=== PATIENT | male | born 1935 | race Caucasian/White ===

== ENCOUNTER 2022-05-13 17:28 | Inpatient (IN) | payer MEDICARE, OTHER ==
[~2022-05-13] VITALS: Ht 177.8 cm; Wt 105.7 kg
[~2022-05-13 17:28] MED LIST: ALDACTONE25 MG PO; BENICAR *OUT OF20 MG PO; CEPHALEXIN500 MG PO; COUMADIN5 MG PO; COUMADIN7.5 MG PO; HCTZ25 MG PO; HYTRIN5 MG PO; LASIX40 MG PO; MAG-OXIDE 400M400 MG PO; PRINIVIL20 MG PO; SPIRIVA 18MCG18 MCG INH; SYMBICORT 1601 PUFFS INH; VITAMIN D1000 UNI1 PO; VITAMIN D2000 UNI1 PO; ZOCOR10 MG PO; [UNRECOGNIZED DRUG - OTHER] PO
[2022-05-13 20:42] LABS: BASOPHIL 0.1 % (0-2); EOSINOPHIL 0.5 % (0-7); HCT 30.9 % (42.0-52.0); HGB 10.1 g/dl (13.2-18.0); LYMPHOCYTE 13.6 % (15-48); MCH 34.2 pg (25.0-31.0); MCHC 32.7 g/dL (32.0-36.0); MCV 104.7 fL (78.0-100.0); NEUTROPHIL 63.8 % (41-80); NRBC 0; PLT 83 K/uL (150-400); RBC 2.95 M/uL (4.70-6.00); RDW 12.8 % (11.5-14.0); WBC 10.7 K/uL (4.0-10.5)
[2022-05-13 20:43] LABS: MONOCYTE 21.4 % (0-12)
[2022-05-13 20:48] LABS: INR 2.34 (0.9-1.2); PROTHROMBIN TIME 24.8 SECONDS (11.9-13.9)
[2022-05-13 21:01] LABS: ALBUMIN 3.2 g/dL (3.4-5.0); BILIRUBIN - TOTAL 0.8 mg/dL (0.2-1.0); BUN/CREAT RATIO (CALC) 33.7 RATIO; C-REACTIVE PROTEIN 7.9 mg/dL (<=0.90); CREATININE 1.63 mg/dL (0.67-1.17); GLOBULIN (CALCULATION) 4.2 g/dL; TOTAL PROTEIN 7.4 g/dL (6.4-8.2)
[2022-05-13 21:13] LABS: CORONAVIRUS 2019 SARS-COV-2 NEGATIVE (NEGATIVE); INFLUENZA A NAA NEGATIVE (NEGATIVE)
[2022-05-14] MEDS ORDERED: WARFARIN SODIUM5 MG PO (02:25)
[2022-05-14] MEDS ORDERED: NORVASC5 MG PO (02:26)
[2022-05-14] MEDS ORDERED: WARFARIN SODIU7.5 MG PO (02:26)
[2022-05-14 06:31] LABS: BASOPHIL 0.2 % (0-2); EOSINOPHIL 1.1 % (0-7); HCT 26.7 % (42.0-52.0); HGB 8.8 g/dl (13.2-18.0); LYMPHOCYTE 13.6 % (15-48); MCH 34.2 pg (25.0-31.0); MCV 103.9 fL (78.0-100.0); MPV 12.2 fL (6.0-9.5); NEUTROPHIL 62.1 % (41-80); NRBC 0; PLT 82 K/uL (150-400); RBC 2.57 M/uL (4.70-6.00); RDW 12.8 % (11.5-14.0); WBC 8.5 K/uL (4.0-10.5)
[2022-05-14 06:37] LABS: INR 2.23 (0.9-1.2); PROTHROMBIN TIME 23.9 SECONDS (11.9-13.9)
[2022-05-14 06:41] LABS: MONOCYTE 22.2 % (0-12)
[2022-05-14 07:33] LABS: ALBUMIN 2.8 g/dL (3.4-5.0); BILIRUBIN - TOTAL 0.8 mg/dL (0.2-1.0); BUN/CREAT RATIO (CALC) 34.9 RATIO; CREATININE 1.46 mg/dL (0.67-1.17); GLOBULIN (CALCULATION) 3.1 g/dL; POTASSIUM 3.6 mmol/L (3.5-5.1); TOTAL PROTEIN 5.9 g/dL (6.4-8.2)
--- NOTE | 2022-05-15 12:30 | NUR ---
05/15 Mr. Delgado lives alone. he was in 2020. He has a C-PAP with blended 02 for nocturnal use, rw, and s. chair. [facility] currently provides 02. Mr. Delgado has 3 daughters. They assist with housekeeping, laundry and shopping. - Mr. Delgado will require continuous 02 at 2 L. A referral has been made to [facility]. - He will require IV antibiotics and has chosen outpatient infusion.
[2022-05-16 02:44] LABS: BASOPHIL 0.3 % (0-2); EOSINOPHIL 1.6 % (0-7); HCT 27.3 % (42.0-52.0); HGB 8.7 g/dl (13.2-18.0); LYMPHOCYTE 15.1 % (15-48); MCH 33.9 pg (25.0-31.0); MCHC 31.9 g/dL (32.0-36.0); MCV 106.2 fL (78.0-100.0); MONOCYTE 18.4 % (0-12); MPV 11.7 fL (6.0-9.5); NEUTROPHIL 64.1 % (41-80); NRBC 0; PLT 92 K/uL (150-400); RBC 2.57 M/uL (4.70-6.00); RDW 12.9 % (11.5-14.0); WBC 7.7 K/uL (4.0-10.5)
[2022-05-16 03:30] LABS: CREATININE 1.64 mg/dL (0.67-1.17)
[2022-05-16 03:31] LABS: C-REACTIVE PROTEIN 4.5 mg/dL (<=0.90); MAGNESIUM 2.3 mg/dL (1.8-2.4); POTASSIUM 4.3 mmol/L (3.5-5.1)
[2022-05-16 03:32] LABS: IRON % SATURATION 9.1 %SAT (20-50)
[2022-05-16] MEDS ORDERED: SINGULAIR10 MG PO (13:35)
== END 2022-05-16 12:25 | disposition home or self-care (01) | DRG 602 ==
LOC: FER 17:28 → FMS 05-14 00:28
PROVIDERS: Emergency Medicine; Nurse Practitioner; ADMIT Internal Medicine
PROC: B24BZZZ Ultrasonography of Heart with Aorta (ICD-10-PCS; principal; 2022-05-14)
PROC: 05HY33Z Insertion of Infusion Device into Upper Vein, Percutaneous Approach (ICD-10-PCS; 2022-05-16)
DX: L03.115 Cellulitis of right lower limb (principal); J96.01 Acute respiratory failure with hypoxia; I48.20 Chronic atrial fibrillation, unspecified; N17.9 Acute kidney failure, unspecified; J44.1 Chronic obstructive pulmonary disease with (acute) exacerbation; J81.1 Chronic pulmonary edema; D50.9 Iron deficiency anemia, unspecified; I35.0 Nonrheumatic aortic (valve) stenosis; I27.20 Pulmonary hypertension, unspecified; I12.9 Hypertensive chronic kidney disease with stage 1 through stage 4 chronic kidney disease, or unspecified chronic kidney disease; N18.30 Chronic kidney disease, stage 3 unspecified; D69.59 Other secondary thrombocytopenia; Z20.822 Contact with and (suspected) exposure to COVID-19; E78.5 Hyperlipidemia, unspecified; Z87.891 Personal history of nicotine dependence; I73.9 Peripheral vascular disease, unspecified; G47.30 Sleep apnea, unspecified; Z96.651 Presence of right artificial knee joint; Z83.6 Family history of other diseases of the respiratory system; Z88.2 Allergy status to sulfonamides; Z88.1 Allergy status to other antibiotic agents
CPT/HCPCS: 36415; 71045; 73700; 80048; 80053; 80202; 82607; 83540; 83550; 83605; 83735; 83880; 84145; 84484; 85025; 85610; 85730; 86140; 87040; 93005; 93971; 94010; 94640; 94664; 94667; 94668; 94760; 94762; 97162; 97166; 97530-GP; 97535; J0696; J2543; J2916; J3370; J7030; J7040; J7050; Q0162; U0002